=== PATIENT | male | born 1985 | race Caucasian/White ===

== ENCOUNTER 2016-10-26 13:17 | Emergency (ER) | payer OTHER ==
[~2016-10-26] VITALS: Ht 177.8 cm; Wt 111.4 kg
[2016-10-26] MEDS ORDERED: IBUPROFEN 800 MG TABLET PO ONE (14:45)
[2016-10-26] MEDS ORDERED: GuaiFENesin/D-METHORPHAN [SUGAR-FREE] 200-20MG/10 ML SYRUP UDCUP PO ONE (14:45)
[2016-10-26] MEDS ORDERED: OxyCODONE HCL/ACETAMINOPHEN 5-325 MG TABLET PO ONE (14:45)
[2016-10-26 15:55] VITALS: BP 141/79
== END 2016-10-26 16:12 | disposition home or self-care (01) ==
LOC: EMS 13:24
DX: H60.92 Unspecified otitis externa, left ear (principal); J06.9 Acute upper respiratory infection, unspecified; R03.0 Elevated blood-pressure reading, without diagnosis of hypertension
CPT/HCPCS: 99284